=== PATIENT | male | born 1950 | race Caucasian/White ===

== ENCOUNTER → 2021-08-02 11:10 | Outpatient (CLI) | payer MEDICARE, OTHER, SELFPAY ==
[2021-08-02 12:09] LABS: Basophils % 0.6 % (0.1-2.0); Eosinophils # 0.1 K/mm3 (0.0-0.4); Eosinophils % 1.9 % (0.1-12.0); Hematocrit 46.5 % (42.0-52.0); Hemoglobin 15.4 g/dL (14.1-18.0); Lymphocytes # 1.6 K/mm3 (0.7-4.5); Lymphocytes % 28.2 % (10-50); Mean Corpuscular Hemoglobin 31.7 pg (27.0-31.2); Mean Platelet Volume 6.9 fl (7.4-10.4); Monocytes # 0.4 K/mm3 (0.1-1.0); Monocytes % 6.5 % (1.7-9.3); Neutrophils # 3.7 K/mm3 (1.8-7.8); Neutrophils % 62.9 % (37.0-80.0); Platelet Count 281 K/mm3 (142-424); Red Blood Count 4.85 M/mm3 (4.60-6.20); Red Cell Distribution Width 12.2 % (11.5-17.5); White Blood Count 5.8 K/mm3 (4.8-10.8)
[2021-08-02 12:49] LABS: Alanine Aminotransferase 28 U/L (12-78); Albumin Level 4.9 g/dl (3.5-5.0); Albumin/Globulin Ratio 1.5 (1.1-1.8); Alkaline Phosphatase 62 U/L (38-126); Anion Gap 18.3 mEq/L (5-15); Aspartate Amino Transferase 29 U/L (17-59); Bilirubin,Total 0.8 mg/dl (0.2-1.3); Blood Urea Nitrogen 18 mg/dl (9-20); Calcium 9.7 mg/dl (8.4-10.2); Carbon Dioxide 26 mmol/L (22.0-30.0); Chloride 100 mmol/L (98-107); Chol/HDL Ratio 5.6 (1-3.5); Cholesterol 191 mg/dl (140-200); Estimated Glomerular Filt Rate 83 ml/min (>60); GFR (African American) 101 ML/MIN (>60); Globulin 3.2 g/dL (1.3-3.2); Glucose 92 mg/dl (74-100); HDL Cholesterol 34 mg/dl (40-60); Potassium 4.3 mmoL/L (3.5-5.1); Sodium 140 mmol/L (136-145); Total Protein,Serum 8.1 g/dl (6.3-8.2); Triglycerides 143 mg/dl (30-150); VLDL Cholesterol 29 mg/dL (0-40)
[2021-08-02 13:00] LABS: Direct LDL Cholesterol 119.39 mg/dL (100-129)
== END ==
PROVIDERS: Visit Provider Internal Medicine Adolescent Medicine
DX: I10 Essential (primary) hypertension (principal); E78.5 Hyperlipidemia, unspecified
CPT/HCPCS: 36415; 80053; 80061; 85025

== ENCOUNTER 2022-07-08 15:19 | Emergency (ER) | payer MEDICARE, OTHER, SELFPAY ==
[2022-07-08 15:30] VITALS: BP 146/71; PULSE 88; RESP 17; TEMP 36.8; O2SAT 97; BMI 27.6
[2022-07-08 15:41] VITALS: BMI 27.6
[2022-07-08 15:48] LABS: Microscopic, Urine URINE MICROSCOPIC (MICROSCOPIC)
[2022-07-08 15:50] LABS: Appearance,Urine CLEAR (Clear); Bilirubin,Urine Negative (Negative); Blood, Urine Negative (Negative); Chloride 97 mmol/L (98-107); Color,Urine YELLOW (Yellow); Glucose,Urine (UA) Negative (Negative); Ketones,Urine Negative (Negative); Leukocyte Esterase,Urine Negative (Negative); Nitrate,Urine Negative (Negative); PH,Urine 6.5 (5.0-8.5); Potassium 4.1 mmoL/L (3.5-5.1); Protein,Urine Negative (Negative); Sodium 139 mmol/L (136-145); Specific Gravity, Urine 1.015 (1.005-1.030); Urobilinogen,Urine 0.2 EU/dl (0.2)
[2022-07-08 15:51] LABS: Basophils # 0.2 K/mm3 (0-0.2); Basophils % 1.3 % (0.1-2.0); Eosinophils # 0.1 K/mm3 (0.0-0.4); Eosinophils % 0.7 % (0.1-12.0); Hematocrit 44.2 % (42.0-52.0); Hemoglobin 15.2 g/dL (14.1-18.0); Lymphocytes # 1.4 K/mm3 (0.7-4.5); Lymphocytes % 10.1 % (10-50); Mean Corpuscular HGB Conc 34.4 g/dL (31.8-35.4); Mean Corpuscular Hemoglobin 32.3 pg (27.0-31.2); Mean Corpuscular Volume 93.9 fl (80-94); Mean Platelet Volume 7.6 fl (7.4-10.4); Monocytes % 7.7 % (1.7-9.3); Neutrophils # 10.8 K/mm3 (1.8-7.8); Neutrophils % 80.3 % (37.0-80.0); Platelet Count 306 K/mm3 (142-424); Red Blood Count 4.71 M/mm3 (4.60-6.20); Red Cell Distribution Width 12.7 % (11.5-17.5); White Blood Count 13.5 K/mm3 (4.8-10.8)
[2022-07-08 15:53] LABS: Alanine Aminotransferase 35 U/L (12-78); Albumin/Globulin Ratio 1.4 (1.1-1.8); Alkaline Phosphatase 92 U/L (38-126); Anion Gap 18.1 mEq/L (5-15); Aspartate Amino Transferase 34 U/L (17-59); Bilirubin,Total 1.3 mg/dl (0.2-1.3); Blood Urea Nitrogen 25 mg/dl (9-20); Carbon Dioxide 28 mmol/L (22.0-30.0); Creatinine Clearance Estimated 49 mL/min (50-200); Estimated Glomerular Filt Rate 40 ml/min (>60); GFR (African American) 48 ML/MIN (>60); Globulin 3.5 g/dL (1.3-3.2); Total Protein,Serum 8.5 g/dl (6.3-8.2)
[2022-07-08 15:54] LABS: Calcium 9.3 mg/dl (8.4-10.2); Glucose 137 mg/dl (74-100)
[2022-07-08 16:00] VITALS: BP 148/78; PULSE 79; RESP 18; O2SAT 95
--- NOTE | 2022-07-08 16:01 | CT_ITS ---
PROCEDURE INFORMATION: Exam: CT Abdomen And Pelvis Without Contrast Exam date and time: 07/08/22 04:22 PM Age: 72 years old Clinical indication: Abdominal pain; Flank; Right lower quadrant (rlq); Additional info: Right flank pain, stone TECHNIQUE: Imaging protocol: Computed tomography of the abdomen and pelvis without contrast. Radiation optimization: All CT scans at this facility use at least one of these dose optimization techniques: automated exposure control; mA and/or kV adjustment per patient size (includes targeted exams where dose is matched to clinical indication); or iterative reconstruction. COMPARISON: No relevant prior studies available. FINDINGS: Tubes, catheters and devices: None noted. Lungs: Lung bases appear clear. Heart: No significant coronary calcifications. No cardiomegaly. No significant pericardial effusion. Liver: Normal. No mass. Gallbladder and bile ducts: Normal. No calcified stones. No ductal dilation. Pancreas: Normal. No ductal dilation. Spleen: Normal. No splenomegaly. Adrenal glands: Normal. No mass. Kidneys and ureters: Distal right UVJ calculus 2 mm with mild right hydronephrosis and hydroureter. Parapelvic and cortical cysts bilaterally. Left upper and midpole caliceal calcifications nonobstructive. Stomach and bowel: Unremarkable. No obstruction. No mucosal thickening. Appendix: No evidence of appendicitis. Intraperitoneal space: Unremarkable. No free air. No significant fluid collection. Retroperitoneal space: No significant retroperitoneal inflammatory changes are noted. Vasculature: Atherosclerotic calcifications. No abdominal aortic aneurysm. Lymph nodes: Unremarkable. No enlarged lymph nodes. Urinary bladder: Unremarkable as visualized. Reproductive: Unremarkable as visualized. Bones/joints: Unremarkable. No acute fracture. Soft tissues: Bilateral inguinal hernias contain cecum and sigmoid colon. No obstruction. IMPRESSION: 1. Distal right UVJ calculus 2 mm with mild right hydronephrosis and hydroureter. 2. Bilateral inguinal hernias contain cecum and sigmoid colon. No obstruction.
--- NOTE | 2022-07-08 16:02 | [facility].EDGENADL ---
Discharge Plan Disposition Patient Disposition: Home, Self-Care Condition: Good Prescriptions Prescriptions: New ibuprofen 600 mg tablet 600 mg PO Q8H PRN (Reason: pain) Qty: 14 0RF ondansetron 4 mg tablet,disintegrating 4 mg PO Q6H PRN (Reason: nausea and vomiting) Qty: 12 0RF tamsulosin 0.4 mg capsule 0.4 mg PO DAILY Qty: 5 0RF hydrocodone-acetaminophen 5-325 mg tablet 1 tab PO Q6H PRN (Reason: pain) Qty: 12 0RF Referrals Follow up/Referrals: Joe Ralph MD [Primary Care Provider] - See instructions Gavino Ortega MD [Staff Physician] - See instructions (Kidney stone) Activity Restrictions/Add. Instructions Additional Instructions/Restrictions: You have been evaluated for flank pain, diagnosed with a kidney stone. The kidney stone is 2 mm in size, likely to pass. Please take ibuprofen every 8 hours. Take Zofran for nausea. [place] for severe pain. Follow-up with your primary care doctor as well as urology. Return to the emergency department for any new or worsening symptoms, pain, vomiting, other concerns Instructions Patient Instructions: DI for Kidney Stones Discharge ED Provider: Bina Agarwal Adult HPI General Chief complaint: Abdominal Pain Stated complaint: back pain, Time Seen by Provider: 07/08/22 15:24 Mode of Arrival: Ambulatory Source of Information: Patient Limitations: No Limitations History of Present Illness HPI narrative: 72-year-old male presenting to the emergency department with flank pain, abdominal pain. Symptoms started in the middle the night last night. It started as sharp, stabbing pain that was located on the right flank. He tried Tylenol. This morning, the pain persisted. Now it is wrapping around from the back to the front. Now more constant and intense. Associated nausea. No vomiting. He has not noticed difficulty urinating or hematuria. No fevers, chills, nausea, vomiting. No changes in bowel habits. He has had kidney stones before, this feels similar. Has never had stents, lithotripsy, other interventions. Related Data Previous Rx's Medication Instructions Recorded hydrocodone 5 mg-acetaminophen 325 1 tab PO Q6H PRN pain #12 tabs 07/08/22 mg tablet ibuprofen 600 mg tablet 600 mg PO Q8H PRN pain #14 tabs 07/08/22 ondansetron 4 mg disintegrating 4 mg PO Q6H PRN nausea and 07/08/22 tablet vomiting #12 tabs tamsulosin 0.4 mg capsule 0.4 mg PO DAILY #5 caps 07/08/22 Allergies Allergy/AdvReac Type Severity Reaction Status Date / Time Sulfa (Sulfonamide Allergy Intermediate Verified 07/08/22 15:43 Antibiotics) PFSH PFS Social History Smoking Status: Never smoker alcohol intake: never current occupational status: employed Travel in the last 8 weeks: None ROS Obtained: Yes All systems reviewed & no additional complaints except as documented Constitutional Constitutional: Denies chills, Denies fever(s) and Denies headache(s) ENT Ears, Nose, Mouth, and Throat: Denies dizziness and Denies headache(s) Cardiovascular Cardiovascular: Denies chest pain, Denies dyspnea and Denies palpitations Respiratory Respiratory: Denies cough and Denies dyspnea Gastrointestinal Gastrointestingal: Reports abdominal pain and nausea; Denies bloating, constipation, diarrhea or vomiting Genitourinary Male Genitourinary: Denies difficulty urinating, Reports flank pain and Denies hematuria Musculoskeletal Musculoskeletal: Denies arthralgias and Reports back pain (Right flank) Integumentary/Breasts Skin/Breast: Denies rash Neurologic Neurologic: Denies dizziness and Denies headache(s) Endocrine Endocrine: Denies palpitations Physical Exam General General appearance: alert and in no apparent distress Head Head exam: atraumatic and normocephalic Eye Eye exam: Present normal appearance and EOMI Chest Chest inspection: Present normal inspection and symmetric chest wall rise Respiratory Respiratory exam: Present normal lung sounds bi
[2022-07-08 16:03] LABS: Bacteria,Urine Trace /lpf; Squamous Epithelial Cell,Urine Occasional #/hpf (0-5)
--- NOTE | 2022-07-08 16:28 | PC.NURSE ---
PT GONE TO CT VIA W/C
--- NOTE | 2022-07-08 16:32 | PC.NURSE ---
pt returned from radiology
[2022-07-08 17:00] VITALS: BP 126/64; PULSE 81; RESP 18; O2SAT 96
[2022-07-08 17:30] VITALS: BP 130/69; PULSE 77; RESP 18; O2SAT 96
[2022-07-08 18:06] VITALS: BP 123/74; PULSE 72; RESP 16; TEMP 36.6; O2SAT 98
== END 2022-07-08 18:08 | disposition home or self-care (01) ==
PROVIDERS: Emergency Provider Emergency Medicine; PCP Internal Medicine Adolescent Medicine
DX: N20.0 Calculus of kidney (principal); Z88.2 Allergy status to sulfonamides
CPT/HCPCS: 74176; 80053; 81001; 85025; 96365; 96375; 99284; J2405